=== PATIENT | male | born 1955 | race African-American/Black ===

== ENCOUNTER 2018-04-11 14:39 | Inpatient (IN) ==
[2018-04-11 15:12] LABS: Basophils # 0.1 10*3/uL (0.0-0.2); Basophils % 1.3 % (0.0-0.8); Eosinophils # 0.2 10*3/uL (0.0-0.87); Eosinophils % 3.9 % (0.00-10.9); Hematocrit 26.9 VOL% (42.0-52.0); Hemoglobin 7.8 GM/DL (14.0-18.0); Immature Granulocytes % 0.4 %; Immature Granulocytes Absolute 0.02 #; Lymphocytes # 0.9 10*3/uL (1.4-4.0); Lymphocytes % 17.5 % (21.2-54.2); Mean Corpuscular Hemoglobin 22 PG (27-34); Mean Corpuscular Volume 74.1 FL (87-102); Mean Platelet Volume 11.2 FL (9.6-12.0); Monocytes # 0.8 10*3/uL (0.11-0.8); Neutrophils # 3.4 10*3/uL (1.4-7.4); Neutrophils % 62.9 % (38.7-73.9); Platelet Count 285 T/CUMM (130-400); Red Blood Count 3.63 MC/CUMM (3.8-5.5); Red Cell Distribution Width 19.2 % (9.3-17.3); White Blood Count 5.4 T/CUMM (4-12)
[2018-04-11 15:36] LABS: % Iron Saturation 3.1 % (18-50); Albumin 3.8 G/DL (3.4-5.0); Bilirubin,Total 0.4 MG/DL (0.2-1.0); Calcium 8.4 MG/DL (8.5-10.1); Ferritin 6.1 ng/ml (26-388); Osmolality,Calculated 281.1 MOS/KG (273-304); Potassium 3.4 MMOL/L (3.5-5.1); Total Protein 7.5 G/DL (6.4-8.3)
[2018-04-11 15:53] LABS: Folate 10.4 NG/ML (5.4-24.0)
[2018-04-11] MEDS ORDERED: ONDANSETRON 4 MG/2 ML VIAL IV PRN (16:11)
[2018-04-11] MEDS ORDERED: ACETAMINOPHEN 325 MG TABLET PO PRN (16:11)
[2018-04-11] MEDS ORDERED: MORPHINE 4 MG/1 ML VIAL IV PRN (17:11)
[2018-04-11] MEDS: SODIUM CHLORIDE 0.45% 1,000 ML IV SCH (18:48)
[2018-04-11] MEDS: FERROUS SULFATE 325 MG TABLET PO SCH (20:24)
[2018-04-11] MEDS: PANTOPRAZOLE 40 MG VIAL IV SCH (20:24)
[2018-04-11 21:25] LABS: Hematocrit 27.5 VOL% (42.0-52.0)
[2018-04-12 06:21] LABS: Basophils # 0.1 10*3/uL (0.0-0.2); Basophils % 1.1 % (0.0-0.8); Eosinophils # 0.2 10*3/uL (0.0-0.87); Eosinophils % 3.7 % (0.00-10.9); Hematocrit 27.1 VOL% (42.0-52.0); Immature Granulocytes % 0.2 %; Immature Granulocytes Absolute 0.01 #; Lymphocytes % 20.9 % (21.2-54.2); Mean Corpuscular HGB Conc 29.5 GM/DL (32-36); Mean Corpuscular Hemoglobin 21 PG (27-34); Mean Corpuscular Volume 71.3 FL (87-102); Mean Platelet Volume 11.7 FL (9.6-12.0); Monocytes # 0.6 10*3/uL (0.11-0.8); Monocytes % 13.6 % (1.7-12.7); Neutrophils # 2.8 10*3/uL (1.4-7.4); Neutrophils % 60.5 % (38.7-73.9); Platelet Count 284 T/CUMM (130-400); Red Cell Distribution Width 18.9 % (9.3-17.3); White Blood Count 4.6 T/CUMM (4-12)
[2018-04-12 06:22] LABS: Hematocrit 26.9 VOL% (42.0-52.0); Hemoglobin 8.1 GM/DL (14.0-18.0)
[2018-04-12 07:00] LABS: Albumin 3.2 G/DL (3.4-5.0); Calcium 8.1 MG/DL (8.5-10.1); Osmolality,Calculated 279.1 MOS/KG (273-304); Potassium 3.8 MMOL/L (3.5-5.1); Total Protein 7.2 G/DL (6.4-8.3)
[2018-04-12] MEDS: BENAZEPRIL 40 MG TABLET PO SCH (09:36)
[2018-04-12] MEDS: amLODIPine 10 MG TABLET PO SCH (09:36)
[2018-04-12] MEDS: SODIUM CHLORIDE 0.45% 1,000 ML IV SCH ×2 (09:36→20:23)
[2018-04-12] MEDS: ATORVASTATIN 40 MG TABLET PO SCH (09:36)
[2018-04-12] MEDS: FERROUS SULFATE 325 MG TABLET PO SCH ×3 (09:36→20:21)
[2018-04-12] MEDS: LINACLOTIDE 145 MCG CAPSULE PO SCH (09:40)
[2018-04-12] MEDS: PANTOPRAZOLE 40 MG VIAL IV SCH ×2 (09:40→20:21)
[2018-04-12 11:48] LABS: Hematocrit 27.4 VOL% (42.0-52.0); Hemoglobin 7.9 GM/DL (14.0-18.0)
[2018-04-13 04:29] LABS: Albumin 3.2 G/DL (3.4-5.0); Bilirubin,Total 0.7 MG/DL (0.2-1.0); Calcium 8.3 MG/DL (8.5-10.1); Osmolality,Calculated 279.1 MOS/KG (273-304); Potassium 3.6 MMOL/L (3.5-5.1); Total Protein 7.4 G/DL (6.4-8.3)
[2018-04-13] MEDS: PANTOPRAZOLE 40 MG VIAL IV SCH ×2 (08:42→20:44)
[2018-04-13] MEDS: ATORVASTATIN 40 MG TABLET PO SCH (08:42)
[2018-04-13] MEDS: BENAZEPRIL 40 MG TABLET PO SCH (08:43)
[2018-04-13] MEDS: FERROUS SULFATE 325 MG TABLET PO SCH ×3 (08:43→20:44)
[2018-04-13] MEDS: amLODIPine 10 MG TABLET PO SCH (08:43)
[2018-04-13] MEDS: LINACLOTIDE 145 MCG CAPSULE PO SCH (08:43)
[2018-04-13] MEDS: SODIUM CHLORIDE 0.45% 1,000 ML IV SCH (11:53)
[2018-04-13 11:54] LABS: Basophils # 0.1 10*3/uL (0.0-0.2); Basophils % 1.9 % (0.0-0.8); Eosinophils # 0.2 10*3/uL (0.0-0.87); Eosinophils % 3.2 % (0.00-10.9); Hematocrit 31.1 VOL% (42.0-52.0); Lymphocytes # 1.1 10*3/uL (1.4-4.0); Lymphocytes % 24.1 % (21.2-54.2); Mean Corpuscular HGB Conc 28.9 GM/DL (32-36); Mean Corpuscular Hemoglobin 21 PG (27-34); Mean Corpuscular Volume 73.7 FL (87-102); Mean Platelet Volume 11.6 FL (9.6-12.0); Monocytes # 0.6 10*3/uL (0.11-0.8); Monocytes % 11.9 % (1.7-12.7); Neutrophils # 2.8 10*3/uL (1.4-7.4); Neutrophils % 58.9 % (38.7-73.9); Platelet Count 343 T/CUMM (130-400); Red Blood Count 4.22 MC/CUMM (3.8-5.5); Red Cell Distribution Width 19.3 % (9.3-17.3); White Blood Count 4.7 T/CUMM (4-12)
[2018-04-13 12:43] LABS: Hypochromasia 2+; Macrocytosis 1+; Platelet Estimate Adequate; Polychromasia Slight; Target Cells Slight
[2018-04-13 20:51] LABS: Basophils # 0.1 10*3/uL (0.0-0.2); Basophils % 1.3 % (0.0-0.8); Eosinophils # 0.1 10*3/uL (0.0-0.87); Hemoglobin 9.1 GM/DL (14.0-18.0); Immature Granulocytes % 0.2 %; Immature Granulocytes Absolute 0.01 #; Lymphocytes % 18.2 % (21.2-54.2); Mean Corpuscular HGB Conc 29.4 GM/DL (32-36); Mean Corpuscular Hemoglobin 21 PG (27-34); Mean Corpuscular Volume 72.1 FL (87-102); Mean Platelet Volume 11.9 FL (9.6-12.0); Monocytes # 0.6 10*3/uL (0.11-0.8); Monocytes % 11.3 % (1.7-12.7); Neutrophils # 3.7 10*3/uL (1.4-7.4); Platelet Count 293 T/CUMM (130-400); Red Cell Distribution Width 19.8 % (9.3-17.3); White Blood Count 5.5 T/CUMM (4-12)
[2018-04-13 21:00] LABS: Hypochromasia 1+
[2018-04-13 21:01] LABS: Platelet Estimate Adequate; Polychromasia Slight
[2018-04-14] MEDS: SODIUM CHLORIDE 0.45% 1,000 ML IV SCH ×3 (03:34→21:02)
[2018-04-14 05:39] LABS: Basophils # 0.1 10*3/uL (0.0-0.2); Basophils % 1.3 % (0.0-0.8); Eosinophils # 0.1 10*3/uL (0.0-0.87); Eosinophils % 2.6 % (0.00-10.9); Hematocrit 29.3 VOL% (42.0-52.0); Immature Granulocytes % 0.4 %; Immature Granulocytes Absolute 0.02 #; Lymphocytes # 1.2 10*3/uL (1.4-4.0); Lymphocytes % 22.4 % (21.2-54.2); Mean Corpuscular HGB Conc 29.7 GM/DL (32-36); Mean Corpuscular Hemoglobin 21 PG (27-34); Mean Corpuscular Volume 71.6 FL (87-102); Mean Platelet Volume 12.3 FL (9.6-12.0); Monocytes # 0.7 10*3/uL (0.11-0.8); Monocytes % 13.2 % (1.7-12.7); Neutrophils # 3.2 10*3/uL (1.4-7.4); Neutrophils % 60.1 % (38.7-73.9); Platelet Count 334 T/CUMM (130-400); Red Blood Count 4.09 MC/CUMM (3.8-5.5); Red Cell Distribution Width 19.9 % (9.3-17.3); White Blood Count 5.3 T/CUMM (4-12)
[2018-04-14 05:40] LABS: Hemoglobin 8.7 GM/DL (14.0-18.0)
[2018-04-14 05:48] LABS: Microcytosis 2+; Platelet Estimate Normal
[2018-04-14] MEDS: amLODIPine 10 MG TABLET PO SCH (09:21)
[2018-04-14] MEDS: BISACODYL 5 MG TABLET PO SCH ×3 (09:21→23:42)
[2018-04-14] MEDS: ATORVASTATIN 40 MG TABLET PO SCH (09:21)
[2018-04-14] MEDS: BENAZEPRIL 40 MG TABLET PO SCH (09:21)
[2018-04-14] MEDS: PANTOPRAZOLE 40 MG VIAL IV SCH ×2 (09:22→21:01)
[2018-04-14] MEDS: LINACLOTIDE 145 MCG CAPSULE PO SCH (09:25)
[2018-04-14 11:59] LABS: Basophils # 0.1 10*3/uL (0.0-0.2); Eosinophils # 0.1 10*3/uL (0.0-0.87); Eosinophils % 2.8 % (0.00-10.9); Hematocrit 30.3 VOL% (42.0-52.0); Hemoglobin 8.8 GM/DL (14.0-18.0); Immature Granulocytes % 0.2 %; Immature Granulocytes Absolute 0.01 #; Lymphocytes % 20.6 % (21.2-54.2); Mean Corpuscular Hemoglobin 21 PG (27-34); Mean Corpuscular Volume 73.7 FL (87-102); Mean Platelet Volume 11.5 FL (9.6-12.0); Monocytes # 0.7 10*3/uL (0.11-0.8); Monocytes % 13.4 % (1.7-12.7); Neutrophils # 3.1 10*3/uL (1.4-7.4); Platelet Count 307 T/CUMM (130-400); Red Blood Count 4.11 MC/CUMM (3.8-5.5); Red Cell Distribution Width 19.7 % (9.3-17.3)
[2018-04-14] MEDS ORDERED: POLYETHYLENE GLYCOL POWDER 255 GM BOTTLE PO ONE (18:00)
[2018-04-14] MEDS ORDERED: MAGNESIUM CITRATE 300 ML BOTTLE PO ONE (21:00)
[2018-04-15] MEDS ORDERED: LIDOCAINE 2% 5 ML VIAL ONE (09:00)
[2018-04-15] MEDS ORDERED: PROPOFOL 200 MG/20 ML VIAL IV ONE (09:00)
[2018-04-15] MEDS: PANTOPRAZOLE 40 MG VIAL IV SCH (10:25)
[2018-04-15] MEDS ORDERED: fentaNYL 100 MCG/2 ML VIAL ONE (13:20)
[2018-04-15] MEDS ORDERED: oxyCODONE/ACETAMINOPHEN 5-325 MG TABLET PO PRN (13:38)
[2018-04-15] MEDS: SODIUM CHLORIDE 0.45% 1,000 ML IV SCH (14:47)
[2018-04-15] MEDS: BENAZEPRIL 40 MG TABLET PO SCH (15:01)
[2018-04-15] MEDS: ATORVASTATIN 40 MG TABLET PO SCH (15:01)
[2018-04-15] MEDS: amLODIPine 10 MG TABLET PO SCH (15:01)
[2018-04-15 15:21] VITALS: BP 115/78
[2018-04-15] MEDS ORDERED: POLYETHYLENE GLYCOL POWDER 17 GM PACK PO SCH (21:00)
== END 2018-04-15 16:15 | disposition home or self-care (01) | DRG 349 ==
LOC: N.ED 14:39 → N.EDINP 15:37 → N.2E 18:14
PROVIDERS: ADMIT Internal Medicine; ATTEND Internal Medicine
PROC: COLONBL (2018-04-15 07:05)

== ENCOUNTER 2019-12-01 15:17 | Observation (INO) ==
[2019-12-01] MEDS ORDERED: ASPIRIN 325 MG TABLET PO STA (15:46)
[2019-12-01] MEDS ORDERED: ENOXAPARIN 100 MG/ML SYRINGE SUBCUT STA (15:46)
[2019-12-01] MEDS ORDERED: ENOXAPARIN 120 MG/0.8 ML SYRINGE SUBCUT ONE (15:58)
[2019-12-01] MEDS ORDERED: ONDANSETRON 4 MG/2 ML VIAL IV STA (16:02)
[2019-12-01] MEDS ORDERED: ONDANSETRON 4 MG/2 ML VIAL ONE (16:03)
[2019-12-01 16:44] LABS: Basophils # 0.1 10*3/uL (0.0-0.2); Basophils % 0.5 % (0.0-0.8); Eosinophils % 0.1 % (0.00-10.9); Hematocrit 33.2 VOL% (42.0-52.0); Hemoglobin 9.8 GM/DL (14.0-18.0); Immature Granulocytes % 0.3 %; Immature Granulocytes Absolute 0.03 #; Lymphocytes # 0.7 10*3/uL (1.4-4.0); Lymphocytes % 7.2 % (21.2-54.2); Mean Corpuscular HGB Conc 29.5 GM/DL (32-36); Mean Corpuscular Volume 71.9 FL (87-102); Monocytes % 7.4 % (1.7-12.7); Neutrophils % 84.5 % (38.7-73.9); Platelet Count 236 T/CUMM (130-400); Red Blood Count 4.62 MC/CUMM (3.8-5.5); Red Cell Distribution Width 22.2 % (9.3-17.3); White Blood Count 9.4 T/CUMM (4-12)
[2019-12-01 16:48] LABS: PT Patient Result 11.1 SECS (9.6-12.2)
[2019-12-01 16:50] LABS: Alanine Aminotransferase 12 U/L (16-61); Albumin 3.8 G/DL (3.4-5.0); Alkaline Phosphatase 84 U/L (45-117); Aspartate Amino Transferase 18 U/L (0-37); Bilirubin,Total < 0.39 MG/DL (0.2-1.0); Blood Urea Nitrogen 11 MG/DL (7-18); Calcium 8.6 MG/DL (8.5-10.1); Estimated Glom Filtration Rate 82 ML/MIN; Glucose 124 MG/DL (74-106); Osmolality,Calculated 274.7 MOS/KG (273-304); Total Protein 7.7 G/DL (6.4-8.3)
[2019-12-01 17:14] LABS: Barbiturates Screen,Urine Negative (Negative); Benzodiazepines Screen,Urine Negative (Negative); Cannabinoid Screen,Urine Negative (Negative); Opiate Screen,Urine Negative (Negative); Phencyclidine Screen,Urine Negative (Negative)
[2019-12-01 17:21] LABS: Apearance,Urine CLEAR (Clear); Bilirubin,Urine Negative (Negative); Blood, Urine Negative (Negative); Glucose,Urine (UA) Negative (Negative); Hyaline Casts,Urine 1 /LPF (0-3); Ketones,Urine Negative (Negative); Mucus,Urine Moderate /LPF (Occasional); Nitrite,Urine Negative (Negative); Protein,Urine Negative; Squamous Epithelial Cell,Urine Occasional /HPF (0-10); Urine Color Yellow (Yellow); Urine Specific Gravity 1.029 (1.001-1.035)
[2019-12-01 18:35] LABS: Anisocytosis 2+; Hypochromasia Slight; Ovalocytes Slight; Poikilocytosis Slight; Target Cells Slight
[2019-12-01] MEDS: FERROUS SULFATE 325 MG TABLET PO SCH (22:00)
[2019-12-02] MEDS ORDERED: ACETAMINOPHEN 325 MG TABLET PO PRN (01:51)
[2019-12-02] MEDS ORDERED: ONDANSETRON 4 MG/2 ML VIAL IV PRN (01:51)
[2019-12-02 05:13] LABS: Basophils # 0.1 10*3/uL (0.0-0.2); Basophils % 1.3 % (0.0-0.8); Eosinophils # 0.1 10*3/uL (0.0-0.87); Eosinophils % 1.4 % (0.00-10.9); Hemoglobin 9.4 GM/DL (14.0-18.0); Immature Granulocytes % 0.2 %; Immature Granulocytes Absolute 0.01 #; Lymphocytes # 1.2 10*3/uL (1.4-4.0); Mean Corpuscular HGB Conc 29.4 GM/DL (32-36); Mean Corpuscular Volume 71.3 FL (87-102); Mean Platelet Volume 11.4 FL (9.6-12.0); Monocytes % 10.2 % (1.7-12.7); Neutrophils % 68.9 % (38.7-73.9); Platelet Count 228 T/CUMM (130-400); Red Blood Count 4.49 MC/CUMM (3.8-5.5); Red Cell Distribution Width 22.1 % (9.3-17.3); White Blood Count 6.4 T/CUMM (4-12)
[2019-12-02 05:33] LABS: Calcium 8.6 MG/DL (8.5-10.1); Osmolality,Calculated 276.5 MOS/KG (273-304)
[2019-12-02 05:37] LABS: Hypochromasia 1+; Microcytosis Slight; Ovalocytes Slight; Platelet Estimate Adequate
[2019-12-02 05:39] LABS: Risk Ratio 3.28; VLDL CHOLESTEROL 18.8 MG/DL
[2019-12-02] MEDS ORDERED: ATORVASTATIN 40 MG TABLET PO SCH (09:00)
[2019-12-02] MEDS ORDERED: amLODIPine 10 MG TABLET PO SCH (09:00)
[2019-12-02] MEDS ORDERED: ENALAPRIL 20 MG TABLET PO SCH (09:00)
[2019-12-02] MEDS ORDERED: PANTOPRAZOLE 40 MG TABLET PO SCH (09:00)
[2019-12-02] MEDS: FERROUS SULFATE 325 MG TABLET PO SCH (12:40)
[2019-12-02 16:09] VITALS: BP 113/70
== END 2019-12-02 17:50 | disposition home or self-care (01) ==
LOC: EDBD → EDUNIT# → N.ED 15:17 → N.EDINP 15:17 → N.TELES 20:15
PROVIDERS: ADMIT Internal Medicine; ATTEND Internal Medicine